=== PATIENT | male | born 1970 | race Caucasian/White ===

== ENCOUNTER 2022-02-05 03:50 | Emergency (ER) | payer MEDICAID ==
[~2022-02-05] VITALS: Ht 162.6 cm; Wt 81.6 kg
[2022-02-05 04:20] VITALS: BP 126/78
--- NOTE | 2022-02-05 04:23 | NUR ---
TO LOBBY A/W BED VIA W/C
[2022-02-05] MEDS ORDERED: KETOROLAC 30 MG/ML VIAL IM ONE (06:20)
[2022-02-05] MEDS ORDERED: MORPHINE SULFATE 4 MG/ML SYR IM ONE (06:20)
--- NOTE | 2022-02-05 06:50 | NUR ---
MEDICATED PER [facility] ORDER , TOLERATED WELL.
[2022-02-05 07:50] VITALS: BP 105/77
--- NOTE | 2022-02-05 07:50 | NUR ---
Patient discharged with v/s stable. Written and verbal after care instructions ABOUT SPINAL COMPRESSION FRACTURE given and explained. Patient verbalized understanding. Ambulatory with steady gait TO LOBBY AWAITING RIDE FROM NIECE. All questions addressed prior to discharge. Advised to follow up with PMD.
== END 2022-02-05 07:50 | disposition home or self-care (01) ==
LOC: MED 03:50
DX: M48.56XA Collapsed vertebra, not elsewhere classified, lumbar region, initial encounter for fracture (principal)
CPT/HCPCS: 72100; 96372; 99284; J1885; J2270